=== PATIENT | female | born 1965 | race Caucasian/White ===

== ENCOUNTER 2017-01-17 17:45 | Emergency (ER) | payer OTHER ==
--- NOTE | 2017-02-04 11:50 | ER ---
ADMIT: 01/17/2017 RM/LOC: ER [facility] MR#: [id number] [facility] [address] [place], [place] [id number] NGUYEN VALENZUELA [address] [address] Emergency Room Report SEX: F AGE: 51 : 1965 DATE: 01/17/2017 HISTORY OF PRESENT ILLNESS: A 51-year-old female, with pain to her back and left abdomen. No recent injury. She says the pain is also causing her to have nausea and vomiting. No fever, but has a headache. REVIEW OF SYSTEMS: Headache and anxiety. PAST MEDICAL HISTORY: Pretty much negative. She thinks she could be , so we are going to go ahead and get a test. She has had one surgery and that is cholecystectomy. ALLERGIES: SHE HAS NO ALLERGIES MEDICATIONS: Takes no medications on a regular basis. PHYSICAL EXAMINATION: GENERAL: Well nourished and well developed. Alert, mildly anxious. VITAL SIGNS: Blood pressure 171/88, heart rate is 88, respirations 16, temp is 97.3, O2 sats 100%. HEENT: Normal inspection. NECK: Supple. RESPIRATIONS: No distress. ABDOMEN: Nontender BACK: Muscle spasms, left flank. LABORATORY DATA: CBC 11.0 and a white count. Chemistry; glucose 112. Urine; leukocytes 3+, blood 1+, wbc's 36, and rbc's 5. test negative. CLINICAL IMPRESSION: Urinary tract infection and flank pain and headache. Given Rocephin, Reglan, Benadryl, and Toradol IV. Discharged home with a prescription for Pyridium and Bactrim. PAVITHRA Beard / Angel Bridges MD / manjit JOB #: [id number] CC: Angel Bridges MD, Attending Physician Jimmy Katz MD, Family Physician
== END 2017-01-17 21:20 | disposition home or self-care (01) ==
LOC: ER 17:45
DX: N39.0 Urinary tract infection, site not specified (principal); R51 Headache; F41.9 Anxiety disorder, unspecified; Z98.890 Other specified postprocedural states